=== PATIENT | female | born 1965 | race Caucasian/White ===

== ENCOUNTER 2019-04-24 11:20 | Emergency (ER) | payer OTHER, SELFPAY ==
[2019-04-24 11:22] VITALS: BP 153/83; PULSE 82; RESP 12; TEMP 37; O2SAT 99; BMI 29.7
--- NOTE | 2019-04-24 11:45 | EKG12_ITS ---
Test Reason : CP Blood Pressure : / mmHG Vent. Rate : 079 BPM Atrial Rate : 079 BPM P-R Int : 130 ms QRS Dur : 140 ms QT Int : 440 ms P-R-T Axes : 003 -21 070 degrees QTc Int : 504 ms Normal sinus rhythm Left bundle branch block Abnormal ECG Confirmed by JIGAR BROWNE, CUBA ([id number]), photographic editor JUNIOR ARIAS ([id number]) on 04/27/2019 9:05:43 AM Referred By: ANEESH Confirmed By:CUBA KIMBALL MD
--- NOTE | 2019-04-24 11:47 | ED.VIS.GI ---
History of Present Illness Chief Complaint: Nausea/Vomiting/Diarrhea Informant: Patient - Abdominal Pain/Flank Pain Onset: Days - 2 Context: Gradual Onset Timing: Continuous Quality: Cramping Location: - - Lower abdomen Current Severity: Mild Maximum Severity: Moderate Worsened by: - - Right before bowel movement Relieved by: Nothing - Nausea/Vomiting/Emesis GI Symptom: Nausea, Vomiting Onset: Today Quality: Nonbilious. Negative for: Blood streaks, Coffee ground, Hematemesis Severity: Mild - Diarrhea/Melena/Hematochezia GI Symptom: Diarrhea Onset: Days - 2 Stool Quality: Watery. Negative for: Maroon, AGGIE per rectum Severity: Severe - 15+ daily Associated Symptoms: Negative for: Dysuria, Frequency, Hematuria, Urgency Narrative: Low-grade fevers, 99.7. No known sick contacts. No recent antibiotics. States she was picking rocks out [place] her [place] the same day as the onset, prior to the onset. No other unusual activities. On no anticoagulants, no blood in the diarrhea. No recent uncooked meats or suspicious food ingestion. - Past Medical History (1) HTN (hypertension) Status: Chronic (2) Hyperlipidemia Status: Chronic (3) Coronary artery disease Status: Chronic (4) GERD (gastroesophageal reflux disease) Status: Chronic Past Medical History - Allergies and Home Meds Allergies/Adverse Reactions: Allergies No Known Allergies Allergy (Verified 12/23/14 22:21) Primary Care Physician: Jung Webber [Primary Care Provider] - Surgical History: cholecystectomy, - - colposcopy w/ piece of cervix removed after abn pap; no hx cervical ca Lives: Spouse/ Significant Other Smoking Status: Never smoker - Family History Maternal Family History: Reports: Unknown Review of Systems General: Reports: Fever, Malaise. Denies: Chills, Sweats Eyes: Denies: Visual changes - bilaterally, Diplopia ENT: Reports: - - jaw pain. Denies: Rhinorrhea, Sore throat Cardiovascular: Denies: Chest pain, Palpitations Respiratory: Denies: Dyspnea, Cough, Dyspnea on exertion Gastrointestinal: Reports: Abdominal pain, Nausea, Vomiting, Diarrhea. Denies: Melena, Hematochezia Genitourinary: Denies: Dysuria, Hematuria, Frequency Musculoskeletal: Reports: Back pain - right periscapular. Denies: Extremity Pain Skin: Denies: Rash, Wounds Neurological: Denies: Headache, Weakness, Numbness Physical Exam Vital Signs/Narrative: Vital Signs Temp Pulse Resp BP Pulse Ox 04/24/19 11:22 98.6 F 82 12 153/83 H 99 Inital Vital Signs reviewed: Yes General: Well nourished, Well developed, No Acute Distress Head: Normocephalic, Atraumatic Eyes: Perrl, EOMI ENT: Moist mucous membranes, No rhinorrhea Neck: Supple, Nontender Cardiovascular: Regular rate, Regular rhythm, No murmurs Respiratory: No distress, CTA bilaterally, Chest nontender Abdomen: Soft, Nontender, Nondistended, Normal bowel sounds, No masses. Negative for: Pulsatile mass Back: Nontender, Normal Inspection - no rash. Negative for: CVA tenderness, Spinal tenderness Extremities: Nontender, No edema Skin: Normal color, No rash, No Trauma Neurological: Alert, Oriented x3, Cranial nerves II-XII grossly intact, Normal Strength, Normal Sensation Psychological: Normal affect, Normal Mood Diagnostic/Tx/Re-eval Laboratory Results 04/24/19 04/24/19 04/24/19 12:00 12:10 12:10 WBC 7.2 RBC 4.07 L Hgb 12.3 Hct 36.8 L MCV 90.4 MCH 30.2 MCHC 33.4 RDW 13.7 RDW Differential 45.9 H Plt Count 173 MPV 9.5 Immature Gran % (Auto) 0.100 Neut % (Auto) 67.5 Lymph % (Auto) 24.1 [place] % (Auto) 8.1 Eos % (Auto) 0.1 Baso % (Auto) 0.1 Absolute Neuts (auto) 4.8 Absolute Lymphs (auto) 1.73 Total Counted Not Reportable Sodium 141 Potassium 3.1 L Chloride 107 Carbon Dioxide 26.0 Anion Gap 8 BUN 9 Creatinine 0.72 Estim Creat Clear Calc 80.38 Est GFR (MDRD) Af Amer 108 Est GFR (MDRD) Non-Af 90 BUN/Creatinine Ratio 12.5 Glucose 87 Calcium 7.8 L Total Bilirubin 0.40 AST 14 L ALT 26 Alkaline Phosphatase 41 L Total Protein 6.7 Albumin 2.9 L Globulin 3.8 Albumin/Globulin Ratio 0.8 L Lipase 64 L Urine Color Yellow Urine Clarity Clear Urine pH 6.0 Ur Specific [place] 1.010 Urine Protein Negative Urine Glucose (UA) Normal Urine Ketones 50 H Urine Occult Blood 250 H Urine Nitrite Negative Urine Bilirubin Negative Urine Urobilinogen Normal Ur Leukocyte Esterase Negative Urine RBC 0 SEEN Urine WBC 0 SEEN Ur Squamous Epith Cells 0-5 SEEN Urine Bacteria 0 SEEN Urine Mucus 0 SEEN - Rhythm Strip Rhythm Strip: Sinus Rhythm Rate: 79 Ectopy: None - EKG Initial EKG Interpretation: Sinus Rhythm, No Acute Injury Pattern, LBBB Prior: No Prior - Medical Decision Making Patient is mildly improved after fluids, GI cocktail, Zofran, Bentyl, and Toradol. She was having some more cramping, her abdominal exam is benign. Her labs are unremarkable except for hypokalemia, urine does not show signs of infection. My suspicion is that she has a viral infection causing her symptoms including a headache. We ordered an enteric bacterial panel to screen for bacterial and some viral stool infections. Her potassium is 3.1, she is getting an IV K rider. Family arrived and states she drinks water from their [place], and yesterday she was drinking a lot more than her significant other who is not symptomatic. Even before knowing this, patient was able to provide stool specimen for enteric bacterial panel, which will not be run today, it will be run tomorrow morning. If it does show E. coli, I would treat her with antibiotics. However if there is something like Salmonella, antibiotics may not be indicated at this time since it has been less than 1 week. She is nontoxic. She will be given a dose of Phenergan and then discharged home with prescriptions for Zofran and Bentyl, advised to stay hydrated, and follow-up. She and family are comfortable with this plan. ED Disposition - Plan for ED Patient: Disposition: Home or Assisted Living Diagnosis: Gastroenteritis, Hypokalemia Instructions: ED Diet Vomiting Diarrhea, ED Gastroenteritis Vs Food Poison Prescriptions: Dicyclomine HCl [Bentyl] 20 mg PO Q4H PRN #20 cap PRN Reason: abdominal cramping Ondansetron [Zofran] 8 mg PO Q8H PRN #12 tab PRN Reason: Nausea/Vomiting Referrals: Jung Webber [Primary Care Provider] - 3-5 Days if not improving
[2019-04-24] MEDS: Dicyclomine 10 MG Capsule 20 MG PO (12:08)
[2019-04-24] MEDS: Ondansetron 4 MG/2 ML Vial IV (12:08)
[2019-04-24] MEDS: Ketorolac 30 MG/ML Syringe IV (12:08)
[2019-04-24] MEDS: 0.9% Normal Saline 1,000 ML 1000 ML IV (12:08)
[2019-04-24] MEDS: Mag Hydrox/Al Hydrox/Simeth 30 ML UDC PO (12:08)
[2019-04-24 12:09] LABS: Bacteria 0 SEEN /hpf (None Seen); Mucous, Urine 0 SEEN /hpf (<or=2+); Red Blood Cells-Urine 0 SEEN /hpf (0-5); White Blood Cells 0 SEEN /hpf (0-5)
[2019-04-24 12:11] LABS: Color, Urine Yellow (Yellow); Glucose, Dipstick Normal (Normal); Ketone-Dipstick 50 mg/dl (Negative); Leukocyte Esterase-Dipstick Negative /ul (Negative); Nitrite-Dipstick Negative (Negative); Occult Blood-Urine 250 /ul (Negative); Protein-Dipstick Negative (Negative); Urine Bilirubin Dipstick Negative (Negative); Urine Clarity Clear (Clear); Urine Urobilinogen Normal (Normal)
--- NOTE | 2019-04-24 12:11 | ED.RN ---
pt only able to take 1/2 of GI cocktail
[2019-04-24 12:17] LABS: Squamous Epithelial Cells - UA 0-5 SEEN /hpf (5-10)
[2019-04-24 12:20] LABS: Absolute Lymphocyte Count 1.73 X10^3/ul (0.83-4.51); Absolute Neutrophil Count 4.8 X10^3/uL (2.0-7.7); Basophil# 0.01 X10^3/uL; Basophil% 0.1 % (0-1); Eosinophil# 0.01 X10^3/uL; Eosinophils% 0.1 % (0-5); Hematocrit 36.8 % (37-47); Hemoglobin 12.3 g/dl (12.0-15.0); Lymphocyte # 1.73 X10^3/ul (4.0); Lymphocyte % 24.1 % (19-41); Mean Corp Hgb Conc 33.4 g/gl (32-36); Mean Corpuscular Hgb 30.2 pg (27.0-32.0); Mean Corpuscular Volume 90.4 fL (81-99); Mean Platelet Vol. 9.5 fl (6.2-12.0); Monocyte# 0.58 X10^3/uL; Monocyte% 8.1 % (0-10); Neutrophil # 4.84 X10^3/uL (2.7-7.7); Neutrophil % 67.5 % (47-70); POSITIVE COUNT NO; POSITIVE DIFFERENTIAL NO; POSITIVE MORPHOLOGY NO; Platelet Count 173 K/mm3 (150-450); RBC Distribution Width CV 13.7 % (11.6-14.6); RBC Distribution Width SD 45.9 fl (35.1-43.9); Red Blood Count 4.07 M/mm3 (4.2-5.4); White Blood Count 7.2 K/mm3 (4.4-11.0)
[2019-04-24 12:41] LABS: ALB/GLOB Ratio 0.8 RATIO (0.9-2.4); AST(SGOT) 14 U/L (15-37); Alanine Aminotransfer ALT/SGPT 26 U/L (13-56); Albumin, Serum 2.9 g/dL (3.2-5.0); Alkaline Phosphatase 41 U/L (45-117); Anion Gap 8 (5-15); BUN 9 mg/dL (7-18); BUN/Creat Ratio 12.5 RATIO (10-20); Calcium,Total 7.8 mg/dL (8.5-10.1); Chloride 107 mmol/L (98-107); Creatinine, Serum 0.72 mg/dL (0.55-1.02); EST Glomerular Filtration Rate 90 mL/min (>60); Est Glom Filt Rate - Afr Amer 108 mL/min (>60); Estimated Creatinine Clearance 80.38 ml/min; Globulin 3.8 g/dL (2.2-4.2); Glucose 87 mg/dL (74-106); Lipase 64 U/L (73-393); Potassium 3.1 mmol/L (3.5-5.1); Protein, Total 6.7 g/dL (6.4-8.2); Sodium Level 141 mmol/L (136-145)
[2019-04-24 13:47] VITALS: BP 116/68; PULSE 75; RESP 12; O2SAT 96
[2019-04-24] MEDS: Potassium Chloride 10mEq/100mL 10 MEQ/100 ML IV.SOLN. 100 MEQ IV BOLUS (14:25)
[2019-04-24] MEDS: 0.9% Normal Saline 1,000 ML 999 ML IV (14:25)
[2019-04-24 15:00] VITALS: BP 123/71; PULSE 74; RESP 15; O2SAT 97
[2019-04-24] MEDS: proMETHazine 25 MG/ML Syringe 12.5 MG IV (16:19)
[2019-04-24 16:22] VITALS: BP 116/62; PULSE 80; RESP 16; TEMP 37; O2SAT 96
== END 2019-04-24 16:32 | disposition home or self-care (01) ==
PROVIDERS: Emergency Provider Emergency Medicine; Family Provider Family Medicine; PCP Family Medicine
DX: K52.9 Noninfective gastroenteritis and colitis, unspecified (principal); E87.6 Hypokalemia; Z90.49 Acquired absence of other specified parts of digestive tract; K21.9 Gastro-esophageal reflux disease without esophagitis; I10 Essential (primary) hypertension; E78.5 Hyperlipidemia, unspecified; I25.10 Atherosclerotic heart disease of native coronary artery without angina pectoris; I44.7 Left bundle-branch block, unspecified
CPT/HCPCS: 80053; 81001; 83690; 85025; 87506; 93005; 96361; 96374; 96375; 99285; J7030; A4216; J2405